=== PATIENT | male | born 1990 | race Caucasian/White ===

== ENCOUNTER 2016-11-20 20:21 | Emergency (ER) | payer OTHER ==
[~2016-11-20] VITALS: Ht 182.9 cm; Wt 83.5 kg
[~2016-11-20 20:21] MED LIST: ALBUTEROL0.09 MG/A1 INH; ALBUTEROL0.09 MG/A2 NASB; ANTIVERT 25MG #1 PAC PO; CLONAZEPAM2 MG PO; FLEXERIL10 MG PO; MOTRIN 600 MG600 MG PO; NAPROXEN500 MG PO; OXYCODONE HCL20 M1 PO; VIBRAMYCIN 100100 MG PO; ZOFRAN4 M1 SL
--- NOTE | 2016-11-20 20:59 | ED AMS/SEIZURE/WEAK/DIZZY ---
History of Present Illness General Chief Complaint: General Adult Stated Complaint: PT KEEPS GETTING DIZZY SPELLS Source: patient, old records Exam Limitations: no limitations Vital Signs & Intake/Output Vital Signs & Intake/Output Vital Signs Date Time Temp Pulse Resp B/P Pulse O2 O2 Flow FiO2 Ox Delivery Rate 11/20 2258 97.5 80 18 128/72 98 Room Air Room Air 11/21 2027 97.7 81 18 134/90 97 Room Air Allergies Coded Allergies: Penicillins (Severe, HIVES 11/20/16) Reconcile Medications Albuterol Sulfate (Albuterol Sulfate Hfa) 0.09 MG/Actuation JETHRO 2-4 PUFF INH Q4-6 PRN PRN SHORTNESS OF BREATH 90 MCG PER PUFF Meclizine (Antivert) 25 MG PAC 1 TAB PO TID VERTIGO Meclizine HCl 25 MG TABLET 1 TAB PO Q8 PRN dizziness Ondansetron (Zofran Odt) 4 MG ODT 1 TAB SL Q4-6 PRN NAUSEA Triage Note: PT TO ED C/O DIZZINESS SINCE 1899 THIS EVENING. HAD ROOT CANAL YESTERDAY. HAS TAKEN 2 TYLENOL #3'S, LAST ONE 2 HRS SURGERY AID. Triage Nurses Notes Reviewed? yes HPI: Patient is a 25-year-old male presents complaining of dizziness. , was working today when he had onset of dizziness. Dizziness has been severe at times, is currently mild. Patient believes that head movement may mildly exacerbate the symptoms. Patient with intermittent tightness to his neck and paresthesias to his head. Patient had a root canal yesterday. Patient has been taking Tylenol with Codeine for the pain, has taken 2 doses. Patient reports he is taking Tylenol with Codeine previously with no adverse reactions. Patient reports the sensation as a room spinning and also at times feels like he is going to pass out. Patient denies fevers, chills, chest pain. (GIAN TRUJILLO,DOYLE) Past History Travel History Traveled to [place] past 21 day No Medical History Any Pertinent Medical History? 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 No (DOYLE SHARMA) Review of Systems Review of Systems Constitutional: Denies: chills, fever. EENTM: Reports: mouth pain (had root canal yesterday). Respiratory: Denies: cough, short of breath. Cardiovascular: Denies: chest pain, syncope. GI: Denies: abdominal pain, diarrhea, vomiting. Genitourinary: Reports: no symptoms. Musculoskeletal: Reports: muscle stiffness (right side of neck). Skin: Reports: no symptoms. Neurological/Psychological: Reports: see HPI. Hematologic/Endocrine: Reports: no symptoms. Immunologic/Allergic: Reports: no symptoms. (DOYLE SHARMA) Physical Exam Physical Exam General Appearance: well developed/nourished, alert, awake Head: atraumatic, normal appearance Eyes: Bilateral: normal appearance, PERRL, EOMI, other (grossly normal funduscope exam ). 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 No CVA/TIA Diagnosis: No Severe Sepsis Present: No Septic Shock Present: No (DOYLE SHARMA) Progress Differential Diagnosis: arrythmia, benign positional vertigo, CVA/stroke, drug intoxication, encephalitis, intracranial Hem., intracranial mass/tumor, labrynthitis, meningitis, migraine AMIN, subarachnoid Hem., vertebrobasilar insuff Plan of Care: Orders Procedure Date/time Status MISTAKE 11/20 2134 Active COMPREHENSIVE METABOLIC PANEL 11/20 2134 Complete CBC WITHOUT DIFFERENTIAL 11/20 2134 Complete URINE DRUG SCREEN FOR ER ONLY 11/20 2038 Complete URINALYSIS 11/20 2038 Complete Current Medications Sig/Yolanda Start time Last Medication Dose Stop Time Status Admin Sodium Chloride 1,000 ML BOLUS ONE 11/20 2144 CAN (Normal Saline 0.9%) 11/21 2243 Laboratory Tests 11/20/162148: Anion Gap 10, Estimated GFR > 60, BUN/Creatinine Ratio 10.0, Glucose 82, Calcium 9.6, Total Bilirubin 0.9, AST 33, ALT 43, Alkaline Phosphatase 55, Total Protein 7.2, Albumin 4.5, Globulin 2.7, Albumin/Globulin Ratio 1.7, CBC w Diff NO MAN DIFF REQ, RBC 4.92, MCV 89.3, MCH 29.6, RDW 12.4, MPV 9.4, Gran % 60.9, Lymphocytes % 30.0, Monocytes % 7.0, Eosinophils % 1.7, Basophils % 0.4, Absolute Granulocytes 3.7, Absolute Lymphocytes 1.8, Absolute Monocytes 0.4, Absolute Eosinophils 0.1, Absolute Basophils 0, PUBS MCHC 33.2 11/20/162039: Urine Opiates Screen 3109.00 H, Methadone Screen < 40, Barbiturate Screen < 60, Ur Phencyclidine Scrn < 6.00, Amphetamines Screen < 100, U Benzodiazepines Scrn < 85, Urine Cocaine Screen < 50, Urine Cannabis Screen < 5.00, Urine Color STRAW , Urine Clarity CLEAR, Urine pH 6.5, Ur Specific Fifield <= 1.005, Urine Protein NEG, Urine Ketones NEG, Urine Nitrite NEG, Urine Bilirubin NEG, Urine Urobilinogen 0.2, Ur Leukocyte Esterase NEG, Ur Microscopic EXAM NOT REQUIRED, Urine Hemoglobin NEG, Urine Glucose NEG 2246: Patient has had MRI of head and multiple CT Head over the past 5 years. Results reviewed. No focal neurologic deficits on exam. Further neuroimaging deferred. Patient reports dizziness improving. Continues with pressure to the right side of his head, suspect post procedural as root canal was to right upper. No signs of infection. Appears stable for discharge. (DOYLE SHARMA) Initial ED EKG: none (DOYLE SHARMA) Departure Departure Time of Disposition: 2248 Disposition: HOME OR SELF CARE Condition: Stable Clinical Impression Primary Impression: Dizziness Referrals: NOE DE LA FUENTE,MAXIMINO FLOWERS MD,ORA Ricci (PCP/Family) Additional Instructions: Follow up with your primary care doctor within 1 week for further evaluation. Also follow up with your neurologist(Dr. Smith) if no improvement within 3-4 days. Return to the ER if fevers or worsening of symptoms. Departure Forms: Customer Survey General Discharge Information Prescriptions: Current Visit Scripts Meclizine HCl 1 TAB PO Q8 PRN dizziness #12 TAB (GINA TRUJILLO,DOYLE) PA/COPYRIGHT CLERK Co-Sign Statement Statement: ED Attending supervision documentation- [] I saw and evaluated the patient. I have also reviewed all the pertinent lab results and diagnostic results. I agree with the findings and the plan of care as documented in the PA's/COPYRIGHT CLERK's documentation. [X] I have reviewed the ED Record and agree with the PA's/COPYRIGHT CLERK's documentation. [] Additions or exceptions (if any) to the PAs/COPYRIGHT CLERK's note and plan are summarized below: [] (MEGHANN DE LA FUENTE,RUBEN Ricci)
[2016-11-20 21:57] LABS: ABSOLUTE BASOPHIL COUNT 0 /CUMM (0.0-0.2); ABSOLUTE EOSINOPHIL COUNT 0.1 /CUMM (0.0-0.7); ABSOLUTE GRANULOCYTE CT 3.7 /CUMM (1.4-6.5); ABSOLUTE LYMPH COUNT 1.8 /CUMM (1.2-3.4); ABSOLUTE MONOCYTE COUNT 0.4 /CUMM (0.10-0.60); BASOPHIL % 0.4 % (0.0-2.0); EOSINOPHIL % 1.7 % (0-5); HEMATOCRIT 43.9 % (42-52); MEAN CORPUSCULAR HGB 29.6 PG (27.0-31.0); MEAN CORPUSCULAR HGB CONC 33.2 G/DL (33.0-37.0); MEAN CORPUSCULAR VOLUME 89.3 FL (80.0-94.0); MEAN PLATELET VOLUME 9.4 FL (7.4-10.4); PLATELET COUNT 163 /CUMM (130-400); RBC DISTRIBUTION WIDTH 12.4 % (11.5-14.5); RED BLOOD CELL CT 4.92 /CUMM (4.70-6.10)
[2016-11-20 21:58] LABS: GRANULOCYTE % 60.9 % (42.2-75.2)
[2016-11-20] MEDS ORDERED: MECLIZINE HCL25 MG PO (22:49)
[2016-11-20 22:59] VITALS: BP 128/72
== END 2016-11-20 23:01 ==
LOC: ERH 20:21
PROVIDERS: Physician Assistant
DX: R42 Dizziness and giddiness (principal)
CPT/HCPCS: 80307; 81003

== ENCOUNTER 2016-12-16 13:50 | Emergency (ER) | payer OTHER ==
[~2016-12-16] VITALS: Ht 182.9 cm; Wt 83.9 kg
[~2016-12-16 13:50] MED LIST changes: +MECLIZINE HCL25 MG PO
[2016-12-16 14:44] LABS: ABSOLUTE BASOPHIL COUNT 0 /CUMM (0.0-0.2); ABSOLUTE EOSINOPHIL COUNT 0.1 /CUMM (0.0-0.7); ABSOLUTE GRANULOCYTE CT 2.5 /CUMM (1.4-6.5); ABSOLUTE LYMPH COUNT 1.9 /CUMM (1.2-3.4); ABSOLUTE MONOCYTE COUNT 0.4 /CUMM (0.10-0.60); BASOPHIL % 0.9 % (0.0-2.0); EOSINOPHIL % 2.5 % (0-5); GRANULOCYTE % 49.9 % (42.2-75.2); HEMATOCRIT 48.5 % (42-52); MEAN CORPUSCULAR HGB 29.9 PG (27.0-31.0); MEAN CORPUSCULAR HGB CONC 33.4 G/DL (33.0-37.0); MEAN CORPUSCULAR VOLUME 89.5 FL (80.0-94.0); PLATELET COUNT 166 /CUMM (130-400); RBC DISTRIBUTION WIDTH 12.8 % (11.5-14.5); RED BLOOD CELL CT 5.41 /CUMM (4.70-6.10)
--- NOTE | 2016-12-16 15:25 | ED AMS/SEIZURE/WEAK/DIZZY ---
History of Present Illness General Chief Complaint: Dizziness Stated Complaint: DIZZINESS Source: patient Exam Limitations: no limitations Allergies Coded Allergies: Penicillins (Severe, HIVES 11/20/16) Reconcile Medications Meclizine HCl 25 MG TABLET 1 TAB PO Q8 PRN dizziness Triage Note: PT TO ED WITH C/O DIZZINESS, HAS BEEN SEEN FOR THE SAME HERE AND AT PMD'S OFFICE TWICE. TAKING ANTIVERT WITHOUT EFFECT. Triage Nurses Notes Reviewed? yes HPI: THIS PATIENT is a 25-year-old male with past medical history including concussion who presented to the emergency department today for evaluation of dizziness. The patient reported that about 3 weeks ago he had a root canal done. He reported that after that time he felt, "a wave of fluid go over the right side of my head." He reported that after that sensation went away. About a week later he started feeling dizzy. The patient reported that he went to go see his doctor who told him to continue on Antivert which was given to him here in the emergency department which she came for the same symptoms. The patient reported that the Antivert does not help. He is scheduled for vestibular rehabilitation's week. However, the patient reported that he woke up this morning feeling more dizzy. He reported that he feels like he is going to pass out. He denied any chest pain did radiate. He reported that initially he had some right sided Tenzin vision, but not currently. No headaches or fevers or chills. (KASHMIR BARROW,AUNDREA) Vital Signs & Intake/Output Vital Signs & Intake/Output Vital Signs Date Time Temp Pulse Resp B/P Pulse O2 O2 Flow FiO2 Ox Delivery Rate 12/16 1615 86 16 120/77 98 12/16 1508 98 Room Air 12/16 1405 98.0 77 20 129/86 98 Room Air Room Air ED Intake and Output 12/17 0000 12/16 1200 Intake Total 1000 Output Total Balance 1000 Intake, IV 1000 Patient 185 lb Weight Past History Travel History Traveled to [place] past 21 day No Medical History Any Pertinent Medical History? 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 No (AUNDREA MARLOW PA-C) Review of Systems Review of Systems Constitutional: Reports: no symptoms. EENTM: Reports: see HPI. Respiratory: Reports: no symptoms. Cardiovascular: Reports: no symptoms. GI: Reports: no symptoms. Genitourinary: Reports: no symptoms. Musculoskeletal: Reports: no symptoms. Skin: Reports: no symptoms. Neurological/Psychological: Reports: see HPI. All Other Systems: Reviewed and Negative (AUNDREA MARLOW PA-C) Physical Exam Physical Exam General Appearance: well developed/nourished, no apparent distress, alert, awake Comments: Well-developed well-nourished person in no acute distress HEENT: Normal EENT exam, head normocephalic/atraumatic, moist mucous membranes PERRLA bilaterally. EOMI bilaterally with no nystagmus Nose is atraumatic. External auditory canal and Tympanic membranes clear. Neck: Supple, no lymphadenopathy. No midline tenderness Back: Normal gait Cardiovascular: Regular rate and rhythm with no murmurs, rubs, or gallops Respiratory: No respiratory distress. Breath sounds clear to auscultation bilaterally Extremity: Normal and equal pulses Neuro: Alert oriented x3, motor sensory normal, cranial nerves II through XII grossly intact. No facial droop. No aphasia. No unilateral weakness. 5 out of 5 muscular strength in all extremities Skin: No appreciable rash on exposed skin, skin is warm and dry. Psych: Mood and affect is flat Core Measures ACS in differential dx? No CVA/TIA Diagnosis: No Severe Sepsis Present: No Septic Shock Present: No (AUNDREA MARLOW PA-C) Progress Differential Diagnosis: arrythmia, alcohol intoxication, anemia, benign positional vertigo, CVA/stroke, dehydration, drug intoxication, encephalitis, electrolyte imbalance, GI bleed, hypoglycemia, hypoxia, intracranial Hem., intracranial mass/tumor, labrynthitis, meningitis, Meniere's disease, postural hypotension, presyncope, post-traumatic vertigo, sepsis, seizure disorder, subarachnoid Hem., vertebrobasilar insuff Plan of Care: Orders Procedure Date/time Status THYROID STIMULATING HORMONE 12/16 1416 Complete FREE T4 12/16 141 Complete COMPREHENSIVE METABOLIC PANEL 12/16 141 Complete CBC WITHOUT DIFFERENTIAL 12/16 141 Complete Laboratory Tests 12/16/16 1427: Anion Gap 11, Estimated GFR > 60, BUN/Creatinine Ratio 12.2, Glucose 87, Calcium 10.4 H, Total Bilirubin 1.1, AST 22, ALT 36, Alkaline Phosphatase 57, Total Protein 8.1, Albumin 4.9, Globulin 3.2, Albumin/Globulin Ratio 1.5, TSH 1.190, Free T4 1.02, CBC w Diff NO MAN DIFF REQ, RBC 5.41, MCV 89.5, MCH 29.9, RDW 12.8 , MPV 10.0, Gran % 49.9, Lymphocytes % 39.2, Monocytes % 7.5, Eosinophils % 2.5, Basophils % 0.9, Absolute Granulocytes 2.5, Absolute Lymphocytes 1.9, Absolute Monocytes 0.4, Absolute Eosinophils 0.1, Absolute Basophils 0, PUBS MCHC 33.4 Diagnostic Imaging: Viewed by Me: CT Scan. Discussed w/RAD: CT Scan. Radiology Impression: PATIENT: AYLIN BRAUN PRESENT AGE: 25 PATIENT ACCOUNT NO: [id number] : 88 LOCATION: [facility] ORDERING PHYSICIAN: AUNDREA MARLOW PA-C SERVICE DATE: 12/16/16 EXAM TYPE: CAT - CT HEAD WO IV CONTRAST EXAMINATION: CT HEAD WITHOUT CONTRAST CLINICAL INFORMATION: Chronic dizziness. COMPARISON: None TECHNIQUE: Contiguous axial imaging was performed from the skull base to vertex without intravenous administration of contrast. DLP: 601 mGy-cm FINDINGS: There is no evidence of acute intracranial hemorrhage or territorial infarction. No abnormal mass effect or midline shift is seen. Craig to white matter differentiation is well preserved. No extra-axial fluid collections are identified. The ventricles are normal in size. There is no new abnormal attenuation within the brain parenchyma. No acute osseous abnormality. Chronic, nonaggressive appearing bony protuberance off of the high posterior left parasagittal calvarium is unchanged. The mastoid air cells and visualized portions of the paranasal sinuses are well aerated. IMPRESSION: No acute intracranial pathology. DICTATED BY: PIOTR GILLETTE MD DATE/TIME DICTATED:12/16/161552 DRY CLEANER PRESSER:GRANT DATE/TIME TRANSCRIBED:12/16/161552 CONFIDENTIAL, DO NOT COPY WITHOUT APPROPRIATE AUTHORIZATION. <Electronically signed in Other Vendor System> SIGNED BY: PIOTR GILLETTE MD 12/16/16 8316 Initial ED EKG: none (KASHMIR BARROW,AUNDREA) Departure Departure Disposition: HOME OR SELF CARE Condition: Stable Clinical Impression Primary Impression: Dizziness Referrals: LIONEL DE LA FUENTE,ORA Ricci (PCP/Family) VANDANA HANSEN MD Additional Instructions: CONTINUE TO TAKE PRESVIOUSLY PRESCRIBED MEDICATION DIRECTED. FOLLOW-UP WITH THE NEUROLOGIST WHOSE INFORMATION HAS BEEN PROVIDED TO YOU IN THIS PACKET WELL WITH YOUR PRIMARY CARE PHYSICIAN. ATTENDED PREVIOUSLY SCHEDULED APPOINTMENT FOR vestibular rehabilitation. Departure Forms: Customer Survey General Discharge Information (AUNDREA MARLOW PA-C) PA/HOT KNIFE FOXING CUTTER Co-Sign Statement Statement: ED Attending supervision documentation- [] I saw and evaluated the patient. I have also reviewed all the pertinent lab results and diagnostic results. I agree with the findings and the plan of care as documented in the PA's/HOT KNIFE FOXING CUTTER's documentation. x I have reviewed the ED Record and agree with the PA's/HOT KNIFE FOXING CUTTER's documentation. [] Additions or exceptions (if any) to the PAs/HOT KNIFE FOXING CUTTER's note and plan are summarized below: [] (ELZBIETA DE LA FUENTE,INESSA)
--- NOTE | 2016-12-16 15:59 | CT SCAN REPORT ---
EXAMINATION: CT HEAD WITHOUT CONTRAST CLINICAL INFORMATION: Chronic dizziness. COMPARISON: None TECHNIQUE: Contiguous axial imaging was performed from the skull base to vertex without intravenous administration of contrast. DLP: 601 mGy-cm FINDINGS: There is no evidence of acute intracranial hemorrhage or territorial infarction. No abnormal mass effect or midline shift is seen. Craig to white matter differentiation is well preserved. No extra-axial fluid collections are identified. The ventricles are normal in size. There is no new abnormal attenuation within the brain parenchyma. No acute osseous abnormality. Chronic, nonaggressive appearing bony protuberance off of the high posterior left parasagittal calvarium is unchanged. The mastoid air cells and visualized portions of the paranasal sinuses are well aerated. IMPRESSION: No acute intracranial pathology.
[2016-12-16 16:15] VITALS: BP 120/77
== END 2016-12-16 16:16 ==
LOC: ERH 13:50
PROVIDERS: Physician Assistant
DX: R42 Dizziness and giddiness (principal)

== ENCOUNTER 2017-03-09 22:57 | Emergency (ER) | payer OTHER ==
[~2017-03-09] VITALS: Ht 182.9 cm; Wt 82.6 kg
[2017-03-09 23:23] VITALS: BP 145/70
--- NOTE | 2017-03-09 23:51 | ED GENERAL ADULT ---
History of Present Illness General Chief Complaint: General Adult Stated Complaint: JOINT PAIN HANDS,KNEES, LEGS X4 DAYS Source: patient, family Exam Limitations: no limitations Vital Signs & Intake/Output Vital Signs & Intake/Output Vital Signs Date Time Temp Pulse Resp B/P B/P Pulse O2 O2 Flow FiO2 Mean Ox Delivery Rate 03/09 2348 Room Air 03/09 2323 98.4 68 16 145/70 98 Room Air ED Intake and Output 03/10 0000 03/09 1200 Intake Total Output Total Balance Patient 182 lb Weight Weight Reported by Patient Measurement Method Allergies Coded Allergies: Penicillins (Severe, HIVES 11/20/16) Reconcile Medications Meclizine HCl 25 MG TABLET 1 TAB PO Q8 PRN dizziness Triage Note: TRIAGE: C/O JOINT ACHES AND PAINS X4 DAYS. HX LYME DISEASE, NOT CURRENTLY IN TREATMENT. DID NOT TAKE ANYTHING REGISTERED DENTAL ASSISTANT FOR PAIN OR STIFFNESS ASIDE FROM STEVIA HERBAL SUPPLIMENT. DENIES NOTICING ANY RECENT TICK BITES OR RASHES. Triage Nurses Notes Reviewed? yes HPI: Patient presents with joint aches worsening over the past few weeks. Patient states both elbows both wrists and both knees hurt. Patient states that he had Lyme disease in the past. Patient went to see a natural path physician who stated that he has recurrent line. Patient then went to his primary care physician who disagreed with that diagnosis and did not prescribe him anything. Patient states that tonight he went out for a walk and it was painful to walk. There is been no weakness. He has not dropped anything. There is no incontinence of bowel or bladder. There is no fevers or chills. There is no back pain. Past History Travel History Traveled to [place] past 21 day No Medical History Any Pertinent Medical History? 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 No Review of Systems Review of Systems Constitutional: Reports: no symptoms. EENTM: Reports: no symptoms. Respiratory: Reports: no symptoms. Cardiovascular: Reports: no symptoms. GI: Reports: no symptoms. Genitourinary: Reports: no symptoms. Musculoskeletal: Reports: see HPI, joint pain. Skin: Reports: no symptoms. Neurological/Psychological: Reports: no symptoms. Hematologic/Endocrine: Reports: no symptoms. Immunologic/Allergic: Reports: no symptoms. All Other Systems: Reviewed and Negative Physical Exam Physical Exam General Appearance: well developed/nourished, alert, awake, mild distress Head: atraumatic, normal appearance Eyes: Bilateral: PERRL, EOMI. Ears, Nose, Throat: normal pharynx, normal ENT inspection, hearing grossly normal Neck: normal inspection, supple, full range of motion, no midline tenderness Respiratory: normal breath sounds, chest non-tender, no respiratory distress, lungs clear Cardiovascular: regular rate/rhythm, normal peripheral pulses Gastrointestinal: normal bowel sounds, soft, non-tender, no organomegaly Back: normal inspection, normal range of motion, no vertebral tenderness Extremities: normal inspection, normal capillary refill, normal range of motion, no edema Neurologic/Psych: no motor/sensory deficits, awake, alert, oriented x 3, normal gait, normal mood/affect Reflexes: 2+: tricep (L), tricep (L), ankle (R), ankle (L). 3+: bicep (R), bicep (L), knee (R), knee (L). Skin: intact, normal color, warm/dry Lymphatic: no anterior cervical moises Core Measures ACS in differential dx? No CVA/TIA Diagnosis: No Severe Sepsis Present: No Septic Shock Present: No Progress Differential Diagnoses I considered the following diagnoses in my evaluation of the patient: [Lyme disease, hypothyroidism, electrolyte abnormality, arthralgias] Plan of Care: Orders Procedure Date/time Status THYROID STIMULATING HORMONE 03/09 2351 Complete COMPREHENSIVE METABOLIC PANEL 03/09 2351 Complete CBC WITHOUT DIFFERENTIAL 03/09 2351 Complete Laboratory Tests 03/09/172358: Anion Gap 10, Estimated GFR > 60, BUN/Creatinine Ratio 7.8, Glucose 87, Calcium 9.6, Total Bilirubin 0.6, AST 22, ALT 31, Alkaline Phosphatase 48, Total Protein 7.4, Albumin 4.6, Globulin 2.8, Albumin/Globulin Ratio 1.6, TSH 1.880, CBC w Diff NO MAN DIFF REQ, RBC 4.88, MCV 88.6, MCH 29.5, RDW 12.4, MPV 10.2, Gran % 64.5, Lymphocytes % 27.0, Monocytes % 6.1, Eosinophils % 1.8, Basophils % 0.6, Absolute Granulocytes 3.9, Absolute Lymphocytes 1.6, Absolute Monocytes 0.4, Absolute Eosinophils 0.1, Absolute Basophils 0, PUBS MCHC 33.3 Initial ED EKG: none Comments: Laboratory Has been discussed with the patient. Questions up and answered. Departure Departure Disposition: HOME OR SELF CARE Condition: Stable Clinical Impression Primary Impression: Arthralgia Referrals: LIONEL DE LA FUENTE,ORA Ricci (PCP/Family) Additional Instructions: FOLLOW UP WITH YOUR DOCTOR RETURN FOR ANY CONCERNS Departure Forms: Customer Survey General Discharge Information Critical Care Note Critical Care Note Critical Care Time: non-applicable
[2017-03-10 00:26] LABS: ABSOLUTE BASOPHIL COUNT 0 /CUMM (0.0-0.2); ABSOLUTE EOSINOPHIL COUNT 0.1 /CUMM (0.0-0.7); ABSOLUTE GRANULOCYTE CT 3.9 /CUMM (1.4-6.5); ABSOLUTE LYMPH COUNT 1.6 /CUMM (1.2-3.4); ABSOLUTE MONOCYTE COUNT 0.4 /CUMM (0.10-0.60); BASOPHIL % 0.6 % (0.0-2.0); EOSINOPHIL % 1.8 % (0-5); GRANULOCYTE % 64.5 % (42.2-75.2); HEMATOCRIT 43.3 % (42-52); MEAN CORPUSCULAR HGB 29.5 PG (27.0-31.0); MEAN CORPUSCULAR HGB CONC 33.3 G/DL (33.0-37.0); MEAN CORPUSCULAR VOLUME 88.6 FL (80.0-94.0); MEAN PLATELET VOLUME 10.2 FL (7.4-10.4); PLATELET COUNT 163 /CUMM (130-400); RBC DISTRIBUTION WIDTH 12.4 % (11.5-14.5); RED BLOOD CELL CT 4.88 /CUMM (4.70-6.10); WHITE BLOOD CELL COUNT 6.1 /CUMM (4.8-10.8)
== END 2017-03-10 01:31 ==
LOC: ERH 22:57
PROVIDERS: Emergency Medicine
DX: M25.521 Pain in right elbow (principal); M25.522 Pain in left elbow; M25.531 Pain in right wrist; M25.532 Pain in left wrist; M25.561 Pain in right knee; M25.562 Pain in left knee